=== PATIENT | female | born 1965 | race African-American/Black ===

== ENCOUNTER 2019-11-18 16:46 | Emergency (ER) | payer OTHER, SELFPAY ==
--- NOTE | ~2019-11-18 | XR_ITS ---
EXAMINATION: XR finger 1st LT min 2V DATE: 11/18/2019 17:09 INDICATION: Distal left thumb pain post fall TECHNIQUE: Dorsal palmar, lateral and 2 oblique views of the left first digit were obtained COMPARISON: None FINDINGS: Bone alignment is normal. There are a few small ossicles at the palmar and volar base of the first di stal phalanx which appear to demonstrate corticated margins suggesting these are chronic. No evident acute appearing donor sites along the intact appearing cortices at the base of the distal phalanx to suggest acute avulsion fracture. No other lesions suspicious for fracture identified. Osteoarthritis with mild nonuniform joint space narrowing at the first metacarpophalangeal joint. Chronic mild cysti c change along the ulnar side of the proximal articular surface of the lunate. Soft tissues are unrem arkable. IMPRESSION: 1. No acute osseous abnormality at the left thumb. Reviewed, dictated and finalized at location A. EY OPERATOR SLAG
[2019-11-18 16:57] VITALS: BP 140/84; PULSE 83; RESP 16; TEMP 36.7; O2SAT 98
--- NOTE | 2019-11-18 17:02 | ED.UPPEXIN ---
HPI - Extremity Injury (Upper) General Chief Complaint: Extremity Injury, Upper Stated Complaint: Thumb Injury Time Seen by Provider: 11/18/19 17:03 Source: patient and RN notes reviewed Mode of arrival: ambulatory Limitations: no limitations History of Present Illness HPI narrative: This is a 54 years old female presents to the office for an evaluation of right thumb injury at around 3pm today. States, she was having a seizure episode; when her thumb jammed into the door; she did not hit her head. Her family member was there to catch her before she could fall down onto ground. Currently, she complains of left thumb pain with left side neck strain. Denies headache, vomiting/nausea or urinary incontinent. She has an appointment with her Neurologist early November for her seizure follow up. She took one dose of clonazepam before arrival; but nothing for pain. Related Data Home Medications Medication Instructions Recorded Confirmed apixaban [Eliquis] 5 mg PO BID 11/18/19 11/18/19 brimonidine 1 drp OPHTHALMIC (EYE) BID 11/18/19 11/18/19 carbamazepine 200 mg PO BID 11/18/19 11/18/19 clonazepam 1 mg PO BID 11/18/19 11/18/19 cyclosporine [Restasis] 1 drp OPHTHALMIC (EYE) BID 11/18/19 11/18/19 dorzolamide-timolol 1 drp OPHTHALMIC (EYE) BID 11/18/19 11/18/19 gabapentin 100 mg PO TID 11/18/19 11/18/19 hydrocodone-acetaminophen 5 - 325 mg 11/18/19 latanoprost 1 drp OPHTHALMIC (EYE) HS 11/18/19 11/18/19 timolol maleate 1 drp OPHTHALMIC (EYE) BID 11/18/19 11/18/19 zonisamide 200 mg PO BID 11/18/19 11/18/19 Allergies Allergy/AdvReac Type Severity Reaction Status Date / Time Penicillins Allergy Intermediate Rash Verified 11/18/19 17:02 bee pollen Allergy Unknown Verified 11/18/19 17:02 Review of Systems Review of Systems: Narrative: CONSTITUTIONAL: Denies feeling ill CARDIOVASCULAR: Denies chest pain RESPIRATORY: Denies dyspnea GASTROINTESTINAL: Denies nausea, vomiting GENITOURINARY: Denies urinary symptoms SKIN: Denies rash MUSCULOSKELETAL: Reports left thumb pain with swelling NEUROLOGIC: Denies dizziness PMFSH Past Medical History Medical History Anxiety Epilepsy HTN (hypertension) Pulmonary embolism Seizure Surgical History Surgical History Hx of tonsillectomy Family History Family History Other Diabetes mellitus Social History Social History Smoking status: Never smoker Gender identity (if verbalized by the patient): Female Comments At time of signature, I agree with nursing past medical, surgical, social and family history. There is no relevant family history pertinent to the presenting complaint. Exam Narrative: Exam Narrative: GENERAL: This is a well-nourished, well-developed patient, in no apparent distress. EYES: Sclera clear/white. Vision is grossly intact. EARS: External ears normal, auditory canals clear and without drainage, TMs normal without perforation. Hearing grossly intact. NOSE: External nose normal with no obvious nasal discharge, nares without redness, no rhinorrhea. THROAT: Mucous membranes moist, posterior pharynx clear. NECK: No surface trauma, open wounds, soft tissue or muscle tenderness or spasm, trachea midline, nontender over larynx. No bony tenderness, step-off or deformity to firm palpation at the posterior midline. FROM without limitation or pain; normal flexion, extension,rotation and axial load; reports slight pain with left lateral rotation and tenderness over sternomastoid muscle with palpation. CARDIOVASCULAR: Regular rate and rhythm without murmurs, gallops, or rubs. RESPIRATORY: Clear to auscultation. Breath sounds equal bilaterally. No wheezes, rales, or rhonchi. GASTROINTESTINAL: Abdomen soft, non-tender, nondistended. Bowel sounds are active. No hepat
== END 2019-11-18 17:33 | disposition home or self-care (01) ==
PROVIDERS: Emergency Provider Nurse Practitioner
DX: S69.91XA Unspecified injury of right wrist, hand and finger(s), initial encounter (principal); W22.8XXA Striking against or struck by other objects, initial encounter; Z86.711 Personal history of pulmonary embolism; G40.909 Epilepsy, unspecified, not intractable, without status epilepticus
CPT/HCPCS: 73140; 99213; G0463

== ENCOUNTER 2019-12-09 19:14 | Emergency (ER) | payer OTHER, SELFPAY ==
[2019-12-09 19:18] VITALS: BP 153/93; PULSE 75; RESP 20; TEMP 36.4; O2SAT 100
--- NOTE | 2019-12-09 19:26 | ED.EYEPROB ---
HPI - Eye Problem General Chief complaint: Eye Problems Stated complaint: EYE PROBLEMS Time Seen by Provider: 12/09/19 19:26 Source: patient and RN notes reviewed Mode of arrival: ambulatory Limitations: no limitations History of Present Illness HPI Narrative: A 54 y/o female presents to the ED with worsening blurred vision in both her eyes for the past couple months. She states that she saw her wheel truer at [facility] on Wednesday and that she was told that her eye pressure was high . She reports that her blurred vision has gotten worse. She notes associated eye dryness and that she has been using prescription and OTC eye drops for the past couple months, but denies them alleviating her symptoms. She also notes that she had a retinal tear with surgery a couple years ago. She denies any pain, eye discharge, numbness, tingling, dizziness, frequent urination, focal weakness, or any other medical complaints at this time. MD chief complaint: vision change (blurred) Onset (ago): month(s) (a couple) Duration: progressively worsening Location: both eyes Eye Symptoms: blurry vision and other (dryness) Mechanism: none Context: history of glaucoma Associated symptoms: none Treatments Prior to Arrival: OTC eye drops and other (prescribed eye drops) Related Data Home Medications Medication Instructions Recorded Confirmed apixaban [Eliquis] 5 mg PO BID 11/18/19 11/18/19 brimonidine 1 drp OPHTHALMIC (EYE) BID 11/18/19 11/18/19 carbamazepine 200 mg PO BID 11/18/19 11/18/19 clonazepam 1 mg PO BID 11/18/19 11/18/19 cyclosporine [Restasis] 1 drp OPHTHALMIC (EYE) BID 11/18/19 11/18/19 dorzolamide-timolol 1 drp OPHTHALMIC (EYE) BID 11/18/19 11/18/19 gabapentin 100 mg PO TID 11/18/19 11/18/19 hydrocodone-acetaminophen 5 - 325 mg 11/18/19 latanoprost 1 drp OPHTHALMIC (EYE) HS 11/18/19 11/18/19 timolol maleate 1 drp OPHTHALMIC (EYE) BID 11/18/19 11/18/19 zonisamide 200 mg PO BID 11/18/19 11/18/19 Allergies Allergy/AdvReac Type Severity Reaction Status Date / Time Penicillins Allergy Intermediate Rash Verified 12/09/19 19:38 bee pollen Allergy Unknown Verified 12/09/19 19:15 Review of Systems Review of Systems: All systems reviewed & are unremarkable except as noted in HPI and below Constitutional: Constitutional: Denies fatigue and Denies fever(s) Eyes: Eyes: Reports blurry vision (LASHELL worsening), Denies eye discharge, Reports dry eyes and Denies eye pain ENT: Denies nasal congestion and Denies sinus pressure Cardiovascular: Cardiovascular: Denies chest pain, Denies rapid heart rate, Denies leg edema and Denies dyspnea Respiratory: Respiratory: Denies hemoptysis and Denies dyspnea Gastrointestinal: Gastrointestinal: Denies abdominal pain and Denies melena Genitourinary: Genitourinary: Denies nocturia Musculoskeletal: Musculoskeletal: Denies numbness Neurologic: Denies Abnormal speech present, Denies dizziness, Denies focal weakness, Denies numbness and Denies tingling Endocrine: Endocrine: Denies fatigue PMFSH Past Medical History Medical History (Updated 12/10/19 @ 00:00 by Andrew Yin) Anxiety Epilepsy Glaucoma HTN (hypertension) Hx of seizure disorder Pulmonary embolism Retinal tear Seizure Surgical History Surgical History (Updated 12/09/19 @ 19:45 by Binh Yoon) Hx of eye surgery Retinal repair. Hx of tonsillectomy Family History Family History Other Diabetes mellitus Social History Social History Smoking status: Never smoker Gender identity (if verbalized by the patient): Female Exam Narrative: Exam Narrative: GENERAL: Well-appearing, well-nourished, and in no acute distress. HEAD: Normocephalic, atraumatic THROAT:Mucous membranes moist, NECK: Supple, without lymphadenopathy or mass RESPIRATORY: No respiratory distress, Airway patent, y. EXTREMITIES: No edema, normal
[2019-12-09] MEDS: FLUORESCEIN SOD 1 MG/STRIP EACH EYE (19:48)
== END 2019-12-09 20:25 | disposition home or self-care (01) ==
PROVIDERS: Emergency Provider General Practice
DX: H53.8 Other visual disturbances (principal); G40.909 Epilepsy, unspecified, not intractable, without status epilepticus; H40.9 Unspecified glaucoma; I10 Essential (primary) hypertension; Z86.711 Personal history of pulmonary embolism; Z79.01 Long term (current) use of anticoagulants
CPT/HCPCS: 99283

== ENCOUNTER 2020-04-06 12:12 | Emergency (ER) | payer OTHER, SELFPAY ==
--- NOTE | ~2020-04-06 | US_ITS ---
EXAMINATION: US venous doppler [facility] DATE: 04/06/2020 13:29 INDICATION: Left flank pain and swelling TECHNIQUE: Valdez scale images without and with compression and Doppler images of the left lower extrem ity veins were obtained. COMPARISON: None FINDINGS: The left common femoral vein, profunda femoral vein, femoral vein, popliteal vein, peroneal trunk, posterior tibial veins, and greater saphenous vein are patent. No definite soft tissue abnorm ality is seen at the area of clinical concern. IMPRESSION: 1. Patent left lower extremity veins. No evidence of deep venous thrombosis. Reviewed, dictated and finalized at location A.
--- NOTE | ~2020-04-06 | XR_ITS ---
EXAMINATION: XR ankle LT 2V DATE: 04/06/2020 13:00 INDICATION: Left ankle swelling TECHNIQUE: Anteroposterior, lateral, mortise, and additional oblique view of the ankle were obtained. COMPARISON: None. FINDINGS: There is soft tissue swelling medial to the distal tibia. Bone alignment is normal. There i s no fracture. Dorsal and plantar calcaneal enthesophytes are noted. Soft tissue calcifications are a lso seen in the distal leg. There is moderate osteoarthritis of the midfoot. IMPRESSION: 1. Soft tissue swelling without underlying osseous abnormality. Reviewed, dictated and finalized at location A.
--- NOTE | ~2020-04-06 | XR_ITS ---
EXAMINATION: XR tibia fibula LT 2V INDICATION: Left leg swelling TECHNIQUE: Two views of the left tibia and fibula are obtained on three radiographs COMPARISON: None available FINDINGS: There is soft tissue swelling medial to the mid and distal tibia. No fracture is identified . Soft tissue calcifications are noted. There is mild to moderate osteoarthritis of the knee. IMPRESSION: 1. Soft tissue swelling without underlying osseous abnormality. Reviewed, dictated and finalized at location A.
--- NOTE | ~2020-04-06 | CT_ITS ---
EXAMINATION: CT brain wo con INDICATION: Transient alteration of awareness COMPARISON: 12/08/2018 TECHNIQUE: Standard unenhanced head CT. The dose-length product (DLP) was 605.33 mGy-cm. The mA was a djusted according to patient size. Iterative reconstruction technique was employed. FINDINGS: There is no intracranial hemorrhage, acute infarction, or abnormal mass lesion. The ventric les are normal. There is no abnormal mass effect or midline shift. The bautista-white matter differentiat ion is normal. The basal cisterns are patent. The orbits are normal. The paranasal sinuses, mastoids and calvarium are normal. IMPRESSION: 1. No acute intracranial abnormality. Reviewed, dictated and finalized at location A.
[2020-04-06 12:20] VITALS: BP 157/90; PULSE 77; RESP 19; TEMP 36.8; O2SAT 98
[2020-04-06 13:45] VITALS: BP 158/99; PULSE 61; RESP 18; TEMP 36.6; O2SAT 100
--- NOTE | 2020-04-06 14:56 | ED.GENADULT ---
HPI - General Adult General Chief complaint: Headache Stated complaint: leg pain after seizure Time Seen by Provider: 04/06/20 14:37 Source: patient and family History of Present Illness HPI narrative: Patient is a 54 years old -Maldivian female, history of seizure and pulmonary embolism on Eliquis. Patient had a seizure 2 to 3 days ago, unwitnessed, postictal confusion and feeling like a pop at the front of her head. Currently patient telling me that she is distressed and probably that affect her concentration some time. Patient noticed a lump at the medial side of left lower leg. 1 day after the seizure. Patient denies any trauma, seizure happened while patient in bed. Related Data Home Medications Medication Instructions Recorded Confirmed apixaban [Eliquis] 5 mg PO BID 11/18/19 11/18/19 brimonidine 1 drp OPHTHALMIC (EYE) BID 11/18/19 11/18/19 carbamazepine 200 mg PO BID 11/18/19 11/18/19 clonazepam 1 mg PO BID 11/18/19 11/18/19 cyclosporine [Restasis] 1 drp OPHTHALMIC (EYE) BID 11/18/19 11/18/19 dorzolamide-timolol 1 drp OPHTHALMIC (EYE) BID 11/18/19 11/18/19 gabapentin 100 mg PO TID 11/18/19 11/18/19 latanoprost 1 drp OPHTHALMIC (EYE) HS 11/18/19 11/18/19 zonisamide 200 mg PO BID 11/18/19 11/18/19 fluocinonide-emollient 1 applic TOPICAL 04/06/20 hydrocodone-acetaminophen [[place]] 1 tablet PO 04/06/20 omega 5-msf-vxb-fish oil cap 04/06/20 ondansetron 4 mg PO 04/06/20 Allergies Allergy/AdvReac Type Severity Reaction Status Date / Time Penicillins Allergy Intermediate Rash Verified 04/06/20 13:51 bee venom protein (honey bee) Allergy Swelling Verified 04/06/20 13:51 Review of Systems Review of Systems: Narrative: CONSTITUTIONAL: Denies fever, chills, or sweats. EYES: Denies visual changes, redness, or discharge. ENT: Denies rhinorrhea, congestion, sore throat, or otalgia. CARDIOVASCULAR: Denies chest pain, palpitations, or edema. RESPIRATORY: Denies cough or dyspnea. GASTROINTESTINAL: Denies abdominal pain, nausea, vomiting, or diarrhea. GENITOURINARY: Denies dysuria or hematuria. SKIN: Denies rash or itching. MUSCULOSKELETAL: Denies back pain, joint pain, or myalgia. NEUROLOGIC: Denies headache, numbness, or weakness. PSYCHIATRIC: Denies anxiety or depression. [facility] Past Medical History Medical History (Updated 04/06/20 @ 15:03 by Rashel Mortensen MD) Anxiety Epilepsy Glaucoma HTN (hypertension) Hx of seizure disorder Pulmonary embolism Retinal tear Seizure Surgical History Surgical History (Updated 12/09/19 @ 19:45 by Binh Yoon) Hx of eye surgery Retinal repair. Hx of tonsillectomy Social History Social History Smoking status: Never smoker Gender identity (if verbalized by the patient): Female Exam Narrative: Exam Narrative: General appearance: Well-developed, well-nourished Skin: Normal color, 3 x 4 cm lump at the medial side of the mid left lower leg, nontender, slightly bruised consistent with hematoma. Head: Normocephalic, nontraumatic Eyes: Clear conjunctiva ENT: Oropharynx normal, ears normal, nose normal Neck: Supple, nontender Chest and respiratory: Airway patent, no respiratory distress, no accessory muscle use Heart: Regular rate/rhythm Abdomen: Soft, nontender, no organomegaly, quiet bowel sounds Vascular: Normal peripheral pulses, normal capillary refill. Musculoskeletal: Normal range of motion, nontender back Neurologic: Alert and oriented ?3, JAVA WEB DEVELOPER is normal as tested, no gross motor deficit Course Course Emergency Course: Stable Vital Signs Vital signs: Vital Signs Temperature 36.8 C 04/06/20 12:20 Pulse Rate 77 04/06/20 12:20
[2020-04-06 16:00] VITALS: BP 145/90; PULSE 68; RESP 20; TEMP 36.8; O2SAT 100
== END 2020-04-06 16:00 | disposition home or self-care (01) ==
PROVIDERS: Emergency Provider Emergency Medicine
DX: R51 Headache (principal); S80.12XA Contusion of left lower leg, initial encounter; G40.909 Epilepsy, unspecified, not intractable, without status epilepticus; F41.9 Anxiety disorder, unspecified; H40.9 Unspecified glaucoma; I10 Essential (primary) hypertension; Z86.711 Personal history of pulmonary embolism; Z79.01 Long term (current) use of anticoagulants; X58.XXXA Exposure to other specified factors, initial encounter
CPT/HCPCS: 70450; 73590; 73600; 93971; 99284

== ENCOUNTER 2020-11-12 16:52 | Emergency (ER) | payer OTHER, SELFPAY ==
--- NOTE | ~2020-11-12 | CT_ITS ---
EXAMINATION: CT brain wo con DATE: 11/12/2020 19:33 INDICATION: Seizure. Fall. TECHNIQUE: Computed tomography (CT) of the head was performed without intravenous contrast. The mA wa s adjusted according to patient size. Iterative reconstruction technique was employed. The dose-lengt h product was 605.33 mGy-cm. COMPARISON: Head CT 04/06/2020 FINDINGS: There is no intracranial hemorrhage, acute infarction, or abnormal intracranial mass lesion . The ventricles are normal in size. The orbits are normal. The paranasal sinuses are clear. The mast oid air cells are normal. IMPRESSION: 1. Normal brain. Reviewed, dictated and finalized at location A. NGUAL KINDERGARTEN TEACHER IMPRESSION: 1. Normal brain.
--- NOTE | ~2020-11-12 | XR_ITS ---
EXAMINATION: XR knee LT min 4V DATE: 11/12/2020 18:23 INDICATION: Left knee injury and pain. TECHNIQUE: 5 views of left knee were obtained. COMPARISON: Left tibia and fibula radiographs 04/06/2020 FINDINGS: Bone alignment is normal. No fracture. There is mild tricompartmental osteoarthritis. No kn ee joint effusion. IMPRESSION: 1. Mild left knee osteoarthritis. Reviewed, dictated and finalized at location A. RICAL CONTROL TOOL PROGRAMMER
--- NOTE | ~2020-11-12 | XR_ITS ---
EXAMINATION: XR knee RT min 4V DATE: 11/12/2020 18:23 INDICATION: Right knee injury and pain. TECHNIQUE: 4 views of right knee were obtained. COMPARISON: Right knee radiographs 10/04/2010 FINDINGS: Bone alignment is normal. No fracture. There is mild tricompartmental osteoarthritis. There is a small knee joint effusion. IMPRESSION: 1. Mild right knee osteoarthritis. 2. Small right knee joint effusion. Reviewed, dictated and finalized at location A. GER TELEMARKETING
[2020-11-12 16:56] VITALS: BP 141/84; PULSE 80; RESP 16; TEMP 36.2; O2SAT 100
--- NOTE | 2020-11-12 19:19 | ED.GENADULT ---
HPI - General Adult General Chief complaint: Extremity Injury, Lower Stated complaint: left knee pain Time Seen by Provider: 11/12/20 19:02 Source: patient and family Mode of arrival: ambulatory Limitations: no limitations History of Present Illness HPI narrative: Patient is a 55-year-old female who notes that on the weekend she sustained a seizure with chronic history of seizures noting frequent seizures patient on arrival to emergency department notes that she has now developed bilateral knee pain worse with activity and walking patient notes when she had the seizure she did strike the posterior head where she does have some mild aching pain patient denies other complaints and notes she has otherwise felt fine. Patient presents with family lives at home with family patient is currently on Eliquis for pulmonary embolism. . Related Data Home Medications Medication Instructions Recorded Confirmed apixaban [Eliquis] 5 mg PO BID 11/18/19 11/18/19 brimonidine 1 drp OPHTHALMIC (EYE) BID 11/18/19 11/18/19 carbamazepine 200 mg PO BID 11/18/19 11/18/19 clonazepam 1 mg PO BID 11/18/19 11/18/19 cyclosporine [Restasis] 1 drp OPHTHALMIC (EYE) BID 11/18/19 11/18/19 dorzolamide-timolol 1 drp OPHTHALMIC (EYE) BID 11/18/19 11/18/19 gabapentin 100 mg PO TID 11/18/19 11/18/19 latanoprost 1 drp OPHTHALMIC (EYE) HS 11/18/19 11/18/19 zonisamide 200 mg PO BID 11/18/19 11/18/19 fluocinonide-emollient 1 applic TOPICAL 04/06/20 hydrocodone-acetaminophen [[place]] 1 tablet PO 04/06/20 omega 6-gix-afd-fish oil cap 04/06/20 ondansetron 4 mg PO 04/06/20 Allergies Allergy/AdvReac Type Severity Reaction Status Date / Time Penicillins Allergy Intermediate Rash Verified 11/12/20 19:04 bee venom protein (honey bee) Allergy Swelling Verified 11/12/20 19:04 Review of Systems Review of Systems: All systems reviewed & are unremarkable except as noted in HPI and below PMFSH Past Medical History Medical History Anxiety Epilepsy Glaucoma HTN (hypertension) Hx of seizure disorder Pulmonary embolism Retinal tear Seizure Surgical History Surgical History Hx of eye surgery Retinal repair. Hx of tonsillectomy Family History Family History Other Diabetes mellitus Social History Social History Smoking status: Never smoker Gender identity (if verbalized by the patient): Female Exam Narrative: Exam Narrative: GENERAL: Well-appearing, obese, and in no acute distress. HEAD: Normocephalic, atraumatic. Tenderness of the posterior scalp no deformities noted EYES: PERRLA and EOMI. ENT: Nares clear, no rhinorrhea or epistaxis. Mucous membranes moist. NECK: Supple. No adenopathy or masses. CHEST: Clear to auscultation. No respiratory distress. No wheezes rales or rhonchi HEART: Regular rate and rhythm. No murmur heard. Normal peripheral pulses. ABDOMEN: Soft, nontender, nondistended EXTREMITIES: Normal range of motion. No edema. No cervical thoracic or lumbar tenderness. Tenderness of bilateral anterior knees SKIN: Warm, dry, no rash. NEURO: No focal deficits. Alert and oriented x3. Cranial nerves II through XII grossly intact PSYCH: Normal mood and affect. Course Course Emergency Course: Patient in the room in no distress aware of case findings treatment plan diagnosis Vital Signs Vital signs: Vital Signs Temperature 97.2 F L 11/12/20 16:56 Pulse Rate 80 11/12/20 16:56 Respiratory Rate 16 11/12/20 16:56 Blood Pressure 141/84 H 11/12/20 16:56 Pulse Oximetry 100 11/12/20 16:56 Temperature 97.2 F L 11/12/20 16:56 Pulse Rate 80 11/12/20 16:56 Respiratory Rate 16 11/12/20 16:56 Blood Pressure 141/84 H 11/12/20 16:56 Pulse Oximetry 100 11/12/20 16:56 Medical Decision Making [facility] Narrativ
== END 2020-11-12 20:40 | disposition home or self-care (01) ==
PROVIDERS: Emergency Provider Emergency Medicine; PCP Internal Medicine Endocrinology, Diabetes & Metabolism
DX: S89.92XA Unspecified injury of left lower leg, initial encounter (principal); S89.91XA Unspecified injury of right lower leg, initial encounter; S09.90XA Unspecified injury of head, initial encounter; G40.909 Epilepsy, unspecified, not intractable, without status epilepticus; H40.9 Unspecified glaucoma; I10 Essential (primary) hypertension; F41.9 Anxiety disorder, unspecified; Z86.711 Personal history of pulmonary embolism; Z79.01 Long term (current) use of anticoagulants; M17.12 Unilateral primary osteoarthritis, left knee; X58.XXXA Exposure to other specified factors, initial encounter
CPT/HCPCS: 70450; 73564; 99284

== ENCOUNTER 2020-12-27 08:19 | Emergency (ER) | payer OTHER, SELFPAY ==
[2020-12-27] VITALS (8 sets, daily range): BP systolic 136–159; BP diastolic 81–94; PULSE 73–88; RESP 16–21; TEMP 36.6; O2SAT 100
--- NOTE | ~2020-12-27 | CT_ITS ---
EXAMINATION: CT brain wo con EXAM DATE: 12/27/2020 10:50 INDICATION: Head injury, possible seizure. Takes seizure medication. TECHNIQUE: Spiral CT of the head was performed without contrast. Axial, coronal and sagittal images were reviewed. The dose-length product (DLP) for this examination was 605.33 mGy-cm. The exposure w as tailored according to patient size, and iterative reconstruction (ASIR) was used as additional dos e reduction technique. Comparison is made to prior examination from 11/12/2020. FINDINGS: There is no acute intraparenchymal hemorrhage. No evidence of intraparenchymal brain mass lesion. No evidence of acute infarction. There is no mass effect or midline shift. The ventricles are normal in size. There are no extra-axial collections. There are no acute calvarial fractures. T he orbits are unremarkable. Soft tissue is unremarkable. The visualized sinuses and mastoid air louie ls are well aerated. IMPRESSION: 1. No acute intracranial findings. Reviewed, dictated and finalized at location A.
--- NOTE | ~2020-12-27 | XR_ITS ---
EXAMINATION: XR chest 1V EXAM DATE: 12/27/2020 11:33 INDICATION: Seizure. TECHNIQUE: Portable AP frontal chest x-ray was obtained. There is no prior study for comparison. FINDINGS: The lungs are clear. There are no pleural effusions. The cardiomediastinal silhouette is within normal limits. There is no pneumothorax suspected. The bones and soft tissues are unremarkab le. IMPRESSION: No acute cardiopulmonary findings. Reviewed, dictated and finalized at location A.
--- NOTE | ~2020-12-27 | XR_ITS ---
EXAMINATION: XR knee LT min 4V DATE: 12/27/2020 11:33 INDICATION: Left knee pain TECHNIQUE: Anteroposterior, 2 oblique and lateral views of the affected knee were obtained COMPARISON: 11/12/2020 FINDINGS: Alignment is normal. No fracture. There is at least mild joint space narrowing the medial compartmen t which could be underestimated on nonweightbearing imaging. Moderate-sized patellofemoral osteophyte s. Small marginal osteophytes in the medial and lateral compartments. No joint effusion. Diffuse subc utaneous edema at the about the distal left thigh, knee and proximal calf. IMPRESSION: 1. At least mild tricompartmental osteoarthritis at the left knee which could be underestimated on no nweightbearing imaging. 2. No left knee joint effusion or acute osseous abnormality. Reviewed, dictated and finalized at location B. IMPRESSION: 1. At least mild tricompartmental osteoarthritis at the left knee which could b e underestimated on nonweightbearing imaging. 2. No left knee joint effusion or acute osseous abnormality.
--- NOTE | ~2020-12-27 | XR_ITS ---
EXAMINATION: XR lumbar spine 2-3V DATE: 12/27/2020 11:33 INDICATION: Back pain. Fall. TECHNIQUE: 3 views of lumbar spine were obtained. COMPARISON: None. FINDINGS: There is 6 mm anterolisthesis of L4 on L5. Vertebral body heights are normal. There is mild ly decreased disc height at L4-L5 and severely decreased disc height at L5-S1. There are endplate ost eophytes at all levels. There is multilevel facet joint osteoarthritis, severe in lower lumbar spine. IMPRESSION: 1. Severe lower lumbar spondylosis. Reviewed, dictated and finalized at location A.
--- NOTE | 2020-12-27 08:48 | ECG_ITS ---
Measurements Intervals [place] Rate: 80 P: 65 WV: 169 QRS: 12 QRSD: 86 T: 47 QT: 370 QTc: 428 Interpretive Statements SINUS RHYTHM INCOMPLETE RIGHT BUNDLE BRANCH BLOCK LOW QRS VOLTAGE IN PRECORDIAL LEADS BASELINE ARTIFACT- I, II, AVR, AVL, V1-V6 BORDERLINE ECG Electronically Signed On 12-27-2020 10:18:02 CDT by Raymond Ro D.O.
--- NOTE | 2020-12-27 08:50 | ED.SEIZURE ---
HPI - Seizure General Chief Complaint: Seizure Stated Complaint: seizure Time Seen by Provider: 12/27/20 08:23 Source: patient Mode of arrival: ambulatory Limitations: no limitations History of Present Illness HPI Narrative: Patient is a 55 year old female with history of DVT, PE on Eliquis, epilepsy , anxiety who presents for evaluation of a head injury and possible seizure. Patient states she was at work and she was told she had a seizure. She states she was told that she was standing up and she started to back up . She then collapsed and she hit her head on a desk. She does not remember the events. She was confused after this episode. She reports that for the past few months she is a having seizures weekly. Her last seizure was last week. Her family at bedside states last week she found patient at 3 am in the morning breathing hard and unresponsive so it is presumed she had a seizure. Her neurologist is Dr. Garcia at [place], and she states she has been unable to speak to him about the increased frequency of seizures. She denies missing any of her doses of medications. She reports left lower back pain and left knee pain after this fall. She denies headache , nausea or vomiting. She does also report having cataract surgery a few weeks ago. Seizure History: Yes Related Data Home Medications Medication Instructions Recorded Confirmed apixaban [Eliquis] mg 12/27/20 12/27/20 brimonidine drp 12/27/20 carbamazepine mg PO 12/27/20 carboxymethylcellulose-glycern drp 12/27/20 [Refresh Optive] clonazepam 12/27/20 cyclosporine [Restasis] drp 12/27/20 dorzolamide-timolol 12/27/20 latanoprost drp 12/27/20 lifitegrast [Xiidra] drp 12/27/20 light mineral oil-mineral oil drp OPHTHALMIC (EYE) 12/27/20 [Soothe XP] omega 5-qiw-ena-fish oil cap 12/27/20 peg 400-propylene glycol (PF) drp 12/27/20 [Systane (PF)] vit C-E-zinc taf-hkrdin-ispwun tablet PO 12/27/20 vitamin E 400 unit PO DAILY 12/27/20 zonisamide [Zonegran] 12/27/20 Allergies Allergy/AdvReac Type Severity Reaction Status Date / Time Penicillins Allergy Intermediate Rash Verified 12/27/20 08:33 bee venom protein (honey bee) Allergy Swelling Verified 12/27/20 08:33 Review of Systems Review of Systems: All systems reviewed & are unremarkable except as noted in HPI and below PMFSH Past Medical History Medical History Anxiety Epilepsy Glaucoma HTN (hypertension) Hx of seizure disorder Pulmonary embolism Retinal tear Seizure Surgical History Surgical History Hx of eye surgery Retinal repair. Hx of tonsillectomy Family History Family History Other Diabetes mellitus Social History Social History Smoking status: Never smoker Gender identity (if verbalized by the patient): Female Exam Const: General: no acute distress and alert Orientation/consciousness: patient oriented x3 HENMT: Head: normocephalic and atraumatic Chest: Chest palpation & inspection: normal inspection of the chest and no tenderness Resp: Effort & Inspection: normal respiratory effort and no retractions Auscultation: clear to auscultation bilaterally Cardio: Rate: regular rate Rhythm: regular rhythm Heart sounds: no murmurs GI: GI Palp: Yes Soft to palpation, No Tenderness to palpation present (GI) and No Guarding due to palpation present (GI) Auscultation: normal bowel sounds Back/Spine/Pelvis: Back: no CVA tenderness Skin: General skin exam: normal color Rashes: no rashes Neuro: General: patient oriented x3 and moves all extremities Extrem: General: normal to inspection Psych: Mental Status: mental status grossly normal Affect: normal affect Course Reevaluation(s) Reevaluation #1: Patient witnessed to have
[2020-12-27] MEDS: LORazepam INJ (*CRX) 2 MG/ML VIAL IV PUSH (09:19)
[2020-12-27 09:20] LABS: Basophils Percent Auto 0.5 % (0.2-1.2); Eosinophils Absolute Auto 0.1 K/mm3 (0-0.3); Eosinophils Percent Auto 1.5 % (0-4.4); Hematocrit 40.9 % (37.0-47.0); Hemoglobin 13.3 g/dL (12.0-15.0); Immature Granulocyte Absolute 0.02 K/mm3 (0.00-0.031); Immature Granulocyte Percent A 0.3 % (0-0.5); Lymphocytes Absolute Auto 0.81 K/mm3 (0.9-3.2); Lymphocytes Percent Auto 13.4 % (18.3-44.2); Mean Corpuscular HGB Conc 32.5 g/dl (32-36); Mean Corpuscular Hemoglobin 32.8 pg (26-34); Mean Corpuscular Volume 100.7 fl (80-100); Mean Platelet Volume 9.9 fl (7.4-10.4); Monocytes Absolute Auto 0.4 K/mm3 (0.1-0.6); Monocytes Percent Auto 6.5 % (2.6-8.5); Neutrophils Absolute Auto 4.7 K/mm3 (1.3-6.7); Neutrophils Percent Auto 77.8 % (45.5-73.1); Platelet Count Result 194 k/mm3 (150-375); Red Blood Count 4.06 M/mm3 (4.2-5.4); Red Cell Distribution Width 13.3 % (11.5-14.5)
[2020-12-27 09:29] LABS: Alanine Aminotransferase 16 U/L (4-35); Alkaline Phosphatase 177 U/L (38-126); Anion Gap 6 mmol/L (8-16); Aspartate Amino Transferase 29 U/L (14-36); Bilirubin,Total 0.2 mg/dL (0.2-1.3); Blood Urea Nitrogen 17 mg/dL (7-17); Calcium 8.5 mg/dL (8.4-10.2); Carbon Dioxide 24 mmol/L (22-30); Chloride 110 mmol/L (98-107); Estimated Glomerular Filt Rate > 60; Glucose 99 mg/dL (65-105); Magnesium 1.8 mg/dL (1.6-2.3); Potassium 4.4 mmol/L (3.4-5.0); Sodium 140 mmol/L (137-145)
[2020-12-27 09:41] LABS: Troponin I < 0.012 ng/mL (0.000-0.034)
[2020-12-27 09:58] LABS: Add Urine Microscopic? YES; Amorphous Sediment Urine Few; Appearance Urine Cloudy (Clear); Bilirubin Urine Negative (Negative); Blood Urine Negative (Negative); Color Urine Yellow (Yellow); Glucose Urine UA Negative (Negative); Ketones Urine Negative (Negative); Leukocyte Esterase Ur Negative LEU/UL (Negative); Mucus Urine Rare /lpf; Nitrate Urine Negative (Negative); Protein Urine 1+ mg/dL (Negative); RBC Urine 0-2 /hpf (0-2); Specific Grav Ur 1.018 (1.001-1.035); Squamous Epithelial Cell Urine Rare /hpf (Few); Urobilinogen Urine Negative mg/dL (<2.0); WBC Urine 0-3 /hpf
[2020-12-27] MEDS: SODIUM CHLORIDE 0.9% IV 1,000 ML 999 ML IV CONT (10:09)
[2020-12-27 10:10] LABS: Amphetamine Screen Urine Negative (Negative); Barbiturate Screen Urine Negative (Negative); Benzodiazepines Screen Urine Negative (Negative); Cannabinoid Screen Urine Negative (Negative); Cocaine Screen Urine Negative (Negative); Methadone Screen Urine Negative (Negative); Opiate Screen Urine Negative (Negative); Phencyclidine Screen Urine Negative (Negative)
--- NOTE | 2020-12-27 10:11 | PC.NURSE ---
Pt to CT at this time.
--- NOTE | 2020-12-27 10:44 | PC.NURSE ---
Delay in CT for unknown reason, pt to CT at this time.
[2020-12-27 10:47] LABS: Prothrombin Time 13.9 Seconds (11.1-14.7)
--- NOTE | 2020-12-27 11:20 | PC.NURSE ---
Pt bending arm where iv located and fluids didn't infuse. Pt was reminded to keep her arm straight.
[2020-12-31 16:45] LABS: Carbamazepine Tegretol 6.1 mcg/mL (4.0-12.0)
== END 2020-12-27 13:45 | disposition home or self-care (01) ==
PROVIDERS: Emergency Provider General Practice; PCP Internal Medicine Endocrinology, Diabetes & Metabolism
DX: S09.90XA Unspecified injury of head, initial encounter (principal); M25.562 Pain in left knee; G40.909 Epilepsy, unspecified, not intractable, without status epilepticus; I10 Essential (primary) hypertension; Z86.718 Personal history of other venous thrombosis and embolism; Z86.711 Personal history of pulmonary embolism; Z79.01 Long term (current) use of anticoagulants; M17.12 Unilateral primary osteoarthritis, left knee; M47.816 Spondylosis without myelopathy or radiculopathy, lumbar region; W01.198A Fall on same level from slipping, tripping and stumbling with subsequent striking against other object, initial encounter
CPT/HCPCS: 36415; 51701; 70450; 71045; 72100; 73564; 80053; 80156; 80307; 81001; 83735; 84484; 85025; 85610; 85730; 93005; 96361; 96365; 96375; 99284; J0131; J2060; J7030

== ENCOUNTER 2022-09-21 13:48 | Emergency (ER) | payer OTHER, SELFPAY ==
--- NOTE | ~2022-09-21 | CT_ITS ---
EXAMINATION: CT facial bones wo con DATE: 09/21/2022 14:55 INDICATION: facial injury . TECHNIQUE: Computed tomography (CT) of the facial bones and maxillofacial region was performed withou t intravenous contrast. Automated exposure control and iterative reconstruction technique were employ ed. The dose-length product was 376.45 mGy-cm. COMPARISON: None. FINDINGS: Soft Tissues: Soft tissue swelling/laceration over the lower lip. Left cheek swelling. Facial bones: No acute fracture. No lytic or blastic process. Eyes: The globes are intact. Bilateral lens replacements. The soft tissue planes of the orbits are m aintained. Paranasal Sinuses: The visualized aerated spaces are clear. Foreign Bodies: No radiopaque foreign bodies. Other Findings: None. IMPRESSION: No evidence of acute facial bone fracture. Reviewed, dictated and finalized at location K. ERHOUSE MECHANIC
--- NOTE | ~2022-09-21 | CT_ITS ---
EXAMINATION: CT brain wo con DATE: 09/21/2022 14:55 INDICATION: seizure . TECHNIQUE: Computed tomography (CT) of the head was performed without intravenous contrast. The mA wa s adjusted according to patient size. Iterative reconstruction technique was employed. The dose-lengt h product was 605.33 mGy-cm. COMPARISON: 12/27/2020 and 11/12/2020. FINDINGS: No acute intracranial hemorrhage or extra-axial fluid collection. No hydrocephalus, mass, or herniation. No acute ischemic infarct. Unremarkable dural venous sinus attenuation. No acute osseous abnormality. The aerated spaces are clear. Mild chronic white matter change. Mild atherosclerotic intracranial calcification. Small old right ba huong ganglia lacunar infarct. Bilateral lens replacements. IMPRESSION: No acute intracranial process. Reviewed, dictated and finalized at location K. ESSOGRAPH OPERATOR
[2022-09-21 13:51] VITALS: BP 133/80; PULSE 73; RESP 18; TEMP 37; O2SAT 100
[2022-09-21 13:57] VITALS: PULSE 72
--- NOTE | 2022-09-21 13:57 | ECG_ITS ---
Measurements Intervals [place] Rate: 71 P: 61 WV: 169 QRS: 9 QRSD: 95 T: 43 QT: 396 QTc: 431 Interpretive Statements SINUS RHYTHM BASELINE ARTIFACT- I, II, III, AVR, AVL, AVF NORMAL ECG COMPARED TO ECG 12/27/2020 09:50:47 NO SIGNIFICANT CHANGES Electronically Signed On 09-21-2022 14:51:46 JUNK DEALER by Raymond Ro D.O.
[2022-09-21 13:58] VITALS: O2SAT 100
--- NOTE | 2022-09-21 14:48 | ED.SEIZURE ---
HPI - Seizure General Chief Complaint: Seizure Stated Complaint: seizure, fall Time Seen by Provider: 09/21/22 14:28 Source: patient, EMS and RN notes reviewed Mode of arrival: EMS Limitations: no limitations History of Present Illness HPI Narrative: This is a 57 year old female with history of epilepsy who presents for evaluation of facial injury s/p seizure. Patient's sister is at bedside and she was witness to patient's seizure. She states patient had a seizure and then she fell forward hitting kitchen floor. Patient has small lower lip laceration. She otherwise denies any complaints. She denies headache, neck pain, rib pain or extremity pain. She states she missed a dose of her medication a couple days ago when she fell asleep. She is suppose to take clonazepam after taking a seizures. She reports her last seizure was months ago. Her neurologist is at [place]. Seizure History: Yes Related Data Home Medications Medication Instructions Recorded Confirmed apixaban 5 mg tablet (Eliquis) mg 12/27/20 12/27/20 brimonidine 0.2 % eye drops drp 12/27/20 carbamazepine 200 mg mg PO 12/27/20 tablet,extended release,12 hr carboxymethylcellulose 1 drp 12/27/20 %-glycerin 0.9 % eye gel drops (Refresh Optive) clonazepam 1 mg disintegrating 12/27/20 tablet cyclosporine 0.05 % eye drops in a drp 12/27/20 dropperette (Restasis) dorzolamide 22.3 mg-timolol 6.8 12/27/20 mg/mL eye drops latanoprost 0.005 % eye drops drp 12/27/20 lifitegrast 5 % eye drops in a drp 12/27/20 dropperette (Xiidra) light mineral oil 1 %-mineral oil drp ophthalmic (eye) 12/27/20 4.5 % eye drops (Soothe XP) omega 6-clz-ili-fish oil 300 cap 12/27/20 mg-1,000 mg capsule peg 400-propylene glycol (PF) 0.4 drp 12/27/20 %-0.3 % eye drops in a dropperette (Systane (PF)) vit C 50 mg-E 15 unit-zinc cit 4.5 tablet PO 12/27/20 mg-lutein 2.5 mg-zeaxan chew tablet vitamin E 268 mg (400 unit) capsule 400 unit PO DAILY 12/27/20 zonisamide 100 mg capsule 12/27/20 (Zonegran) Allergies Allergy/AdvReac Type Severity Reaction Status Date / Time Penicillins Allergy Intermediate Rash Verified 09/21/22 14:00 bee venom protein (honey bee) Allergy Swelling Verified 09/21/22 14:00 PMFSH Past Medical History Medical History Anxiety Epilepsy Glaucoma HTN (hypertension) Hx of seizure disorder Pulmonary embolism Retinal tear Seizure Surgical History Surgical History Hx of eye surgery Retinal repair. Hx of tonsillectomy Family History Family History Other Diabetes mellitus Social History Social History Smoking status: Never smoker Gender identity (if verbalized by the patient): Female Exam Const: General: no acute distress and alert Nutritional Appearance: well nourished and obese Orientation/consciousness: patient oriented x3 HENMT: Head: normal to inspection Ears: TM's normal bilaterally Mouth: Yes moist mucous membranes Throat: posterior oropharynx normal and uvula midline Other: tooth 11 slightly loose, left lower lip bleeding with punctate wound, no sutures needed. Eyes: Conjunctivae: conjunctivae normal Pupils: Equal, round and reactive pupils present Other: right exotropia , abnormal alignment, at baseline Resp: Effort & Inspection: normal respiratory effort Cardio: Rate: regular rate Rhythm: regular rhythm Heart sounds: no murmurs GI: GI Palp: Yes Soft to palpation, No Tenderness to palpation present (GI) and No Guarding due to palpation present (GI) Auscultation: normal bowel sounds Back/Spine/Pelvis: Back: no CVA tenderness Skin: General skin exam: normal color Rashes: no rashes Neuro: General: patient oriented x3, moves all extremities, no focal motor def
[2022-09-21] MEDS: clonazePAM (*CRX) 0.5 MG TABLET 1 MG PO (15:46)
[2022-09-21] MEDS: TETANUS,DIPHTHERIA,AC PERTUSSIS ADULT (0.5 ML) BOOSTRIX IM (15:47)
[2022-09-21 16:03] VITALS: BP 137/82; PULSE 77; RESP 18; O2SAT 100
[2022-09-21 16:15] LABS: Basophils Percent Auto 0.9 % (0.2-1.2); Eosinophils Absolute Auto 0.1 K/mm3 (0-0.3); Eosinophils Percent Auto 1.3 % (0-4.4); Hematocrit 39.9 % (37.0-47.0); Hemoglobin 12.8 g/dL (12.0-15.0); Immature Granulocyte Absolute 0.03 K/mm3 (0.00-0.031); Immature Granulocyte Percent A 0.7 % (0-0.5); Lymphocytes Absolute Auto 0.84 K/mm3 (0.9-3.2); Lymphocytes Percent Auto 18.5 % (18.3-44.2); Mean Corpuscular HGB Conc 32.1 g/dl (32-36); Mean Corpuscular Hemoglobin 31.9 pg (26-34); Mean Corpuscular Volume 99.5 fl (80-100); Mean Platelet Volume 9.9 fl (7.4-10.4); Monocytes Absolute Auto 0.7 K/mm3 (0.1-0.6); Monocytes Percent Auto 16.1 % (2.6-8.5); Neutrophils Absolute Auto 2.8 K/mm3 (1.3-6.7); Neutrophils Percent Auto 62.5 % (45.5-73.1); Platelet Count Result 208 k/mm3 (150-375); Red Blood Count 4.01 M/mm3 (4.2-5.4); Red Cell Distribution Width 13.1 % (11.5-14.5); White Blood Count 4.5 K/mm3 (4.5-10.0)
[2022-09-21 17:12] LABS: Alanine Aminotransferase 24 U/L (6-35); Albumin Level 3.6 g/dL (3.5-5.1); Alkaline Phosphatase 120 U/L (38-126); Anion Gap 5 mmol/L (8-16); Aspartate Amino Transferase 33 U/L (14-36); Bilirubin,Total 0.3 mg/dL (0.2-1.3); Blood Urea Nitrogen 13 mg/dL (7-17); Calcium 8.1 mg/dL (8.4-10.2); Carbon Dioxide 19 mmol/L (22-30); Chloride 114 mmol/L (98-107); Estimated CRCL calculation 91 ml/min; Estimated Glomerular Filt Rate > 60; Glucose 88 mg/dL (65-110); Potassium 3.6 mmol/L (3.4-5.0); Sodium 138 mmol/L (137-145)
[2022-09-21 17:50] VITALS: BP 151/78; PULSE 76; RESP 20; O2SAT 100
[2022-09-21] MEDS: SODIUM CHLORIDE 0.9% IV 1,000 ML 999 ML IV CONT (17:51)
[2022-09-21 19:12] VITALS: BP 153/85; PULSE 83; RESP 20; O2SAT 100
[2022-09-24 17:20] LABS: Carbamazepine Tegretol 4.3 mcg/mL (4.0-12.0)
[2022-09-27 07:49] LABS: Zonisamide Zonegran 17.4 mcg/mL (10.0-40.0)
== END 2022-09-21 19:14 | disposition home or self-care (01) ==
PROVIDERS: Emergency Provider General Practice; PCP Internal Medicine Endocrinology, Diabetes & Metabolism
DX: G40.909 Epilepsy, unspecified, not intractable, without status epilepticus (principal); S00.531A Contusion of lip, initial encounter; W22.09XA Striking against other stationary object, initial encounter; I10 Essential (primary) hypertension; H40.9 Unspecified glaucoma; F41.9 Anxiety disorder, unspecified; Z86.711 Personal history of pulmonary embolism; Z79.01 Long term (current) use of anticoagulants; Z23 Encounter for immunization
CPT/HCPCS: 36415; 70450; 70486; 80053; 80156; 80203; 85025; 90471; 90715; 93005; 96360; 99284; A9270; J7030

== ENCOUNTER 2023-08-15 14:03 | Emergency (ER) | payer OTHER, SELFPAY ==
--- NOTE | 2023-08-15 14:06 | ECG_ITS ---
Measurements Intervals [place] Rate: 71 P: 62 HI: 164 QRS: 12 QRSD: 84 T: 41 QT: 392 QTc: 426 Interpretive Statements SINUS RHYTHM INCOMPLETE RIGHT BUNDLE BRANCH BLOCK BASELINE ARTIFACT- I, AVR, V5 BORDERLINE ECG COMPARED TO ECG 09/21/2022 14:04:27 NO SIGNIFICANT CHANGES Electronically Signed On 08-16-2023 10:38:23 PROGRAM RESEARCH SPECIALIST by Raymond Ro D.O.
--- NOTE | 2023-08-15 14:16 | ED.SEIZURE ---
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 Patient does not recall falling however she does have a history of seizures and felt as though she may have had a seizure and fell. She thinks that she may have hit her head on the dresser. Patient does not take any anticoagulants. Reports a headache to the left forehead and thinks that her nose may be fractured. Rates pain 2/10 currently. Denies any dizziness or visual changes. Seizure History: Yes Related Data Home Medications Medication Instructions Recorded Confirmed brimonidine 0.1 % eye drops drp 08/15/23 carbamazepine 200 mg mg PO 08/15/23 tablet,extended release,12 hr clonazepam 1 mg disintegrating mg 08/15/23 tablet dorzolamide-timolol (PF) 2 %-0.5 % drp 08/15/23 eye drops in a dropperette prednisolone acetate 1 % eye drp 08/15/23 drops,suspension tafluprost (PF) 0.0015 % eye drops drp 08/15/23 in a dropperette zonisamide 100 mg capsule 300 mg PO BID 08/15/23 08/15/23 (Zonegran) Allergies Allergy/AdvReac Type Severity Reaction Status Date / Time Penicillins Allergy Intermediate Rash Verified 08/15/23 14:30 bee venom protein (honey bee) Allergy Swelling Verified 08/15/23 14:30 Review of Systems Review of Systems: Pertinent positives per HPI. Patient denies any fever, chills, rash, visual changes, dizziness, cough, runny nose, sore throat, shortness of breath, chest pain, palpitations, nausea, vomiting, diarrhea, constipation, abdominal pain, or any urinary issues. [facility] Past Medical History Medical History Anxiety Epilepsy Glaucoma HTN (hypertension) Hx of seizure disorder Pulmonary embolism Retinal tear Seizure Surgical History Surgical History Hx of eye surgery Retinal repair. Hx of tonsillectomy Family History Family History Other Diabetes mellitus Social History Social History Smoking status: Never smoker Gender identity (if verbalized by the patient): Female Comments At the time of my signature, I reviewed and agree with the nursing past medical, surgical, social, and family history. There is no relevant family history pertinent to the patient complaint. Exam Narrative: General: Well-developed, obese, in no apparent distress Head: Normocephalic, bruising swelling noted to the left forehead Eyes: Pupils equally round and reactive to light bilaterally, EOM intact, sclera and conjunctive clear, no discharge, bilateral eyelid swelling with circumferential ecchymosis around the eyes. Ears: TMs intact and bulging, ear canals clear, no drainage, grossly hearing normal. Nose: Nares patent, no discharge, no inflammation, no sinus tenderness, no epistaxis Mouth: Oropharynx without lesions or masses, good dentition, MMM. Tongue midline, even rise and fall of uvula Neck: Supple, trachea midline, no enlargement of anterior or posterior cervical nodes, no thyroid masses or goiter palpable. Cardio: Regular rate and rhythm, s1 and s2 normal, no murmur appreciated. Resp: Clear to auscultation bilaterally anteriorly and posteriorly, no rhonchi, rales, wheezing or rubs Musculoskeletal: No deformity, non-tender to palpation, grossly normal range of motion, muscle strength strong and equal, peripheral pulse strong, no edema, no cyanosis, normal gait and station Neuro: Alert and oriented x4 with normal speech, no focal deficits, muscle st
[2023-08-15 14:30] VITALS: BP 141/75; PULSE 78; RESP 16; TEMP 36.5; O2SAT 100
[2023-08-15 14:32] VITALS: BP 141/75; PULSE 78; RESP 16; TEMP 36.5; O2SAT 100
== END 2023-08-15 14:34 | disposition short-term general hospital (02) ==
PROVIDERS: Emergency Provider Nurse Practitioner Family; PCP Internal Medicine Endocrinology, Diabetes & Metabolism
DX: G40.909 Epilepsy, unspecified, not intractable, without status epilepticus (principal); S09.90XA Unspecified injury of head, initial encounter; W19.XXXA Unspecified fall, initial encounter; S05.12XA Contusion of eyeball and orbital tissues, left eye, initial encounter; S05.11XA Contusion of eyeball and orbital tissues, right eye, initial encounter; R51.9 Headache, unspecified; I45.10 Unspecified right bundle-branch block; H40.9 Unspecified glaucoma; I10 Essential (primary) hypertension; Z86.711 Personal history of pulmonary embolism
CPT/HCPCS: 93005; 99215; G0463

== ENCOUNTER 2023-08-15 14:58 | Emergency (ER) | payer OTHER, SELFPAY ==
--- NOTE | ~2023-08-15 | CT_ITS ---
EXAMINATION: CT brain wo con DATE: 08/15/2023 15:43 INDICATION: head injury, seizure . TECHNIQUE: Computed tomography (CT) of the head was performed without intravenous contrast. The mA wa s adjusted according to patient size. Iterative reconstruction technique was employed. The dose-lengt h product was 605.33 mGy-cm. COMPARISON: 08/15/2023. FINDINGS: No acute intracranial hemorrhage or extra-axial fluid collection. No hydrocephalus, mass, or herniation. No acute ischemic infarct. Unremarkable dural venous sinus attenuation. No acute osseous abnormality. The aerated spaces are clear. Mild atrophy and chronic white matter change. Mild atherosclerotic intracranial calcification. Focal old right basal ganglia lacunar infarct. Bilateral lens replacements. IMPRESSION: No acute intracranial process. Reviewed, dictated and finalized at location K. T SERVICES OFFICER
--- NOTE | ~2023-08-15 | CT_ITS ---
EXAMINATION: CT facial bones wo con DATE: 08/15/2023 15:43 INDICATION: facial swelling and bruising . TECHNIQUE: Computed tomography (CT) of the facial bones and maxillofacial region was performed withou t intravenous contrast. Automated exposure control and iterative reconstruction technique were employ ed. The dose-length product was 428.51 mGy-cm. COMPARISON: 09/21/2022. FINDINGS: Soft Tissues: Forehead, nasal, and left cheek swelling. Facial bones: Minimally depressed nasal bone fracture. No lytic or blastic process. Eyes: The globes are intact. Bilateral lens replacements. The soft tissue planes of the orbits are m aintained. Paranasal Sinuses: The visualized aerated spaces are clear. Foreign Bodies: No radiopaque foreign bodies. Other Findings: Dental caries and periodontal disease. IMPRESSION: Minimally depressed nasal bone fracture. Reviewed, dictated and finalized at location K. UNTANT
[2023-08-15 14:58] VITALS: BP 155/86; PULSE 60; RESP 16; O2SAT 100
--- NOTE | 2023-08-15 15:25 | ED.GENADULT ---
HPI - General Adult General Chief complaint: Wound/Laceration Stated complaint: seizure yest. Time Seen by Provider: 08/15/23 15:02 Source: patient, RN notes reviewed and old records reviewed Mode of arrival: EMS Limitations: no limitations History of Present Illness HPI narrative: This is a 58 year old female with history of glaucoma, epilepsy who presents for evaluation of facial swelling. Patient states she is sure she had a seizure yesterday . She reports she woke up on the floor yesterday morning after she had gone to bed. She had forehead swelling tenderness and nasal swelling. She continued to have swelling today and bruising to her eyes so she went to urgent care for evaluation. She denies dizziness, headache, nausea, vomiting. She denies any other injuries. She denies epistaxis. She reports having seizure 1-2 times a month despite taking her medications as prescribed. Her last seizure was 3 weeks ago. She was seen by neurologist last month and denies any medication changes. Related Data Home Medications Medication Instructions Recorded Confirmed brimonidine 0.1 % eye drops drp 08/15/23 carbamazepine 200 mg mg PO 08/15/23 tablet,extended release,12 hr clonazepam 1 mg disintegrating mg 08/15/23 tablet dorzolamide-timolol (PF) 2 %-0.5 % drp 08/15/23 eye drops in a dropperette prednisolone acetate 1 % eye drp 08/15/23 drops,suspension tafluprost (PF) 0.0015 % eye drops drp 08/15/23 in a dropperette zonisamide 100 mg capsule 300 mg PO BID 08/15/23 08/15/23 (Zonegran) Allergies Allergy/AdvReac Type Severity Reaction Status Date / Time Penicillins Allergy Intermediate Rash Verified 08/15/23 14:30 bee venom protein (honey bee) Allergy Swelling Verified 08/15/23 14:30 Review of Systems Review of Systems: All systems reviewed & are unremarkable except as noted in HPI and below PMFSH Past Medical History Medical History Anxiety Epilepsy Glaucoma HTN (hypertension) Hx of seizure disorder Pulmonary embolism Retinal tear Seizure Surgical History Surgical History Hx of eye surgery Retinal repair. Hx of tonsillectomy Family History Family History Other Diabetes mellitus Social History Social History Smoking status: Never smoker Gender identity (if verbalized by the patient): Female Exam Const: General: alert Nutritional Appearance: well nourished Orientation/consciousness: patient oriented x3 HENMT: Head: hematoma (forehead hematoma, small 3 mm scab, no open wound) Ears: external ears normal and TM's normal bilaterally Face/Nose/Sinus: no epistaxis Mouth: Yes Normal oral and palatal mucosa present, Yes lip normal and Yes moist mucous membranes Throat: posterior oropharynx normal and uvula midline Other: nasal bridge swelling and tenderness Eyes: Pupils: Equal, round and reactive pupils present EOM: EOMs intact bilaterally Other: periorbital ecchymosis bilateral Neck: Neck: normal visual inspection Chest: Chest palpation & inspection: normal inspection of the chest Resp: Effort & Inspection: normal respiratory effort Auscultation: clear to auscultation bilaterally Cardio: Rate: regular rate Rhythm: regular rhythm Heart sounds: no murmurs GI: GI Palp: Yes Soft to palpation, No Tenderness to palpation present (GI), No Guarding due to palpation present (GI) and No Rigid due to palpation Auscultation: normal bowel sounds Skin: Wounds: wounds noted Neuro: General: patient oriented x3, moves all extremities and CN's II-XI intact bilaterally Extrem: General: normal to inspection Psych: Mental Status: mental status grossly normal Affect: normal affect Attitude: cooperative Course Reevaluation(s) Reevaluation
[2023-08-15 15:58] VITALS: BP 142/75; PULSE 78; RESP 16; O2SAT 100
[2023-08-15 16:36] VITALS: BP 133/77; RESP 20; O2SAT 99
== END 2023-08-15 16:41 | disposition home or self-care (01) ==
PROVIDERS: Emergency Provider General Practice; PCP Internal Medicine Endocrinology, Diabetes & Metabolism
DX: S02.2XXA Fracture of nasal bones, initial encounter for closed fracture (principal); G40.909 Epilepsy, unspecified, not intractable, without status epilepticus; I10 Essential (primary) hypertension; H40.9 Unspecified glaucoma; Z86.711 Personal history of pulmonary embolism; X58.XXXA Exposure to other specified factors, initial encounter
CPT/HCPCS: 70450; 70486; 93005; 99284